=== PATIENT | female | born 1990 | race Hispanic/Latino ===

== ENCOUNTER 2017-08-21 00:44 | Emergency (ER) | payer MEDICAID, OTHER ==
[~2017-08-21 00:44] MED LIST: CIPR-278 PO
[2017-08-21] MEDS ORDERED: PROMETHAZINE HCL 25 MG/ML 1ML AMPULE IM ONE (01:05)
== END 2017-08-21 01:37 | disposition home or self-care (01) ==
LOC: EDH 00:44
DX: J10.1 Influenza due to other identified influenza virus with other respiratory manifestations (principal)
CPT/HCPCS: 96372; 99283; J2550

== ENCOUNTER 2017-11-17 08:28 | Emergency (ER) | payer MEDICAID, OTHER ==
[2017-11-17 09:44] LABS: BASOPHILS % (AUTO) 0.9 % (0.0-5.0); EOSINOPHILS % (AUTO) 2.7 % (0.0-8.0); HEMATOCRIT 43.2 % (36-48); LYMPHOCYTES % (AUTO) 30.6 % (21.0-51.0); MEAN CORPUSCULAR HEMOGLOBIN 31.5 pg (27.0-33.0); MEAN CORPUSCULAR HGB CONC 34.7 g/dL (32.0-36.0); MEAN CORPUSCULAR VOLUME 90.8 fL (79-99); MONOCYTES % (AUTO) 9.5 % (3.0-13.0); NEUTROPHILS % (AUTO) 56.3 % (40.0-77.0); PLATELET COUNT (AUTO) 372 K/uL (130-400); RED BLOOD CELL COUNT(AUTO) 4.76 MIL/uL (4.00-5.50); RED CELL DISTRIBUTION WIDTH 13.1 % (11.0-15.5); WHITE BLOOD COUNT (AUTO) 7.2 K/uL (4.8-10.8)
[2017-11-17 09:56] LABS: BILIRUBIN,URINE Negative (NEGATIVE); COLOR,URINE Yellow (YELLOW); GLUCOSE, URINE (UA) Negative (NEGATIVE); KETONES,URINE Negative (NEGATIVE); LEUKOCYTE ESTERASE ,URINE Negative (NEGATIVE); NITRATE,URINE Negative (NEGATIVE); OCCULT BLOOD,URINE Negative (NEGATIVE); PH,URINE 6.5 (5.0-8.0); PROTEIN,URINE Trace (NEGATIVE)
[2017-11-17 10:02] LABS: APPEARANCE,URINE CLEAR (CLEAR)
[2017-11-17 10:05] LABS: BACTERIA,URINE Rare /HPF (None Seen); SQUAMOUS EPITHELIAL CELL,UR Few /HPF (0-2); WBC,URINE 0-1 /HPF (0-1)
== END 2017-11-17 11:13 | disposition home or self-care (01) ==
LOC: EDH 08:28
DX: O26.891 Other specified pregnancy related conditions, first trimester (principal); R10.2 Pelvic and perineal pain; Z3A.01 Less than 8 weeks gestation of pregnancy
CPT/HCPCS: 36415; 76817; 81001; 81025; 84702; 85025; 87210; 87486; 87797

== ENCOUNTER 2017-11-20 14:41 | Emergency (ER) | payer MEDICAID, OTHER | END 2017-11-20 16:21 | disposition home or self-care (01) | LOC: EDH 14:41 | DX: O20.0 Threatened abortion (principal); Z3A.01 Less than 8 weeks gestation of pregnancy | CPT/HCPCS: 36415; 84702 ==

== ENCOUNTER 2018-09-05 12:24 | Emergency (ER) | payer MEDICAID, OTHER ==
[2018-09-05] MEDS ORDERED: SODIUM CHLORIDE 0.9% 1000ML 1,000 ML IV ONE (14:14)
[2018-09-05 14:24] LABS: BASOPHILS % (AUTO) 0.6 % (0.0-5.0); EOSINOPHILS % (AUTO) 2.4 % (0.0-8.0); HEMATOCRIT 39.8 % (36-48); LYMPHOCYTES % (AUTO) 12.3 % (21.0-51.0); MEAN CORPUSCULAR HEMOGLOBIN 31.4 pg (27.0-33.0); MEAN CORPUSCULAR HGB CONC 34.3 g/dL (32.0-36.0); MEAN CORPUSCULAR VOLUME 91.6 fL (79-99); MONOCYTES % (AUTO) 8.4 % (3.0-13.0); NEUTROPHILS % (AUTO) 76.3 % (40.0-77.0); PLATELET COUNT (AUTO) 319 K/uL (130-400); RED BLOOD CELL COUNT(AUTO) 4.35 MIL/uL (4.00-5.50); RED CELL DISTRIBUTION WIDTH 12.7 % (11.0-15.5); WHITE BLOOD COUNT (AUTO) 10.9 K/uL (4.8-10.8)
[2018-09-05 14:25] LABS: APPEARANCE,URINE CLEAR (CLEAR); BILIRUBIN,URINE Negative (NEGATIVE); COLOR,URINE Yellow (YELLOW); GLUCOSE, URINE (UA) Negative (NEGATIVE); KETONES,URINE Negative (NEGATIVE); LEUKOCYTE ESTERASE ,URINE Trace (NEGATIVE); NITRATE,URINE Negative (NEGATIVE); OCCULT BLOOD,URINE Large (NEGATIVE); PH,URINE 6.5 (5.0-8.0); PROTEIN,URINE Negative (NEGATIVE); UROBILINOGEN,URINE 0.2 mg/dL (0.2-1.0)
[2018-09-05 14:37] LABS: CREATININE 0.7 mg/dL (0.5-1.5); POTASSIUM 3.4 mmol/L (3.5-5.1)
[2018-09-05 14:42] LABS: BACTERIA,URINE Rare /HPF (None Seen)
[2018-09-05 14:49] LABS: CALCIUM OXALATE CRYSTALS,UR Few /LPF (None Seen); MUCUS,URINE Rare LPF (None Seen); SQUAMOUS EPITHELIAL CELL,UR Rare /HPF (0-2)
== END 2018-09-05 16:54 | disposition home or self-care (01) ==
LOC: EDH 12:24
DX: O20.0 Threatened abortion (principal); R19.7 Diarrhea, unspecified; Z98.890 Other specified postprocedural states; Z3A.10 10 weeks gestation of pregnancy
CPT/HCPCS: 36415; 76801; 80048; 81001; 84702; 85025; 86900; 86901; 87804 ×2; 96360; 96361; 99284; J7030

== ENCOUNTER 2019-05-11 22:59 | Emergency (ER) | payer MEDICAID ==
[2019-05-11] MEDS ORDERED: ONDANSETRON ODT 4 MG TAB ONE (23:32)
[2019-05-11] MEDS ORDERED: ACETAMINOPHEN EXTRA STRENGTH 500 MG TABLET ONE (23:32)
[2019-05-11 23:48] LABS: BASOPHILS % (AUTO) 0.5 % (0.0-5.0); EOSINOPHILS % (AUTO) 2.4 % (0.0-8.0); HEMATOCRIT 40.9 % (36-48); LYMPHOCYTES % (AUTO) 15.6 % (21.0-51.0); MEAN CORPUSCULAR HEMOGLOBIN 31.4 pg (27.0-33.0); MEAN CORPUSCULAR HGB CONC 34.2 g/dL (32.0-36.0); MEAN CORPUSCULAR VOLUME 91.6 fL (79-99); MONOCYTES % (AUTO) 5.6 % (3.0-13.0); NEUTROPHILS % (AUTO) 75.9 % (40.0-77.0); PLATELET COUNT (AUTO) 357 K/uL (130-400); RED BLOOD CELL COUNT(AUTO) 4.46 MIL/uL (4.00-5.50); RED CELL DISTRIBUTION WIDTH 13.2 % (11.0-15.5); WHITE BLOOD COUNT (AUTO) 12.2 K/uL (4.8-10.8)
[2019-05-11 23:56] LABS: CREATININE 0.7 mg/dL (0.5-1.5); POTASSIUM 3.7 mmol/L (3.5-5.1)
[2019-05-11 23:57] LABS: APPEARANCE,URINE Clear (CLEAR); BILIRUBIN,URINE Negative (NEGATIVE); COLOR,URINE Yellow (YELLOW); GLUCOSE, URINE (UA) Negative (NEGATIVE); KETONES,URINE Negative (NEGATIVE); LEUKOCYTE ESTERASE ,URINE Negative (NEGATIVE); NITRATE,URINE Negative (NEGATIVE); OCCULT BLOOD,URINE Trace (NEGATIVE); PH,URINE 6.5 (5.0-8.0); PROTEIN,URINE Negative (NEGATIVE)
[2019-05-12 00:01] LABS: ALBUMIN 3.9 g/dL (3.5-5.0); BILIRUBIN,TOTAL 0.3 mg/dL (0.2-1.0); TOTAL PROTEIN, SERUM 7.9 g/dL (6.0-8.3)
[2019-05-12 00:17] LABS: BACTERIA,URINE None Seen /HPF (None Seen); RBC,URINE None Seen /HPF (0-1); WBC,URINE None Seen /HPF (0-1)
[2019-05-12] MEDS ORDERED: TETRACAINE HCL 0.5% 4 ML OPHTH SOLN ONE (00:35)
[2019-05-12] MEDS ORDERED: NA BORATE/BORIC AC/H2O/NACL 120 ML OPHTH IRRIG SOLN ONE (00:35)
[2019-05-12] MEDS ORDERED: FLUORESCEIN SODIUM 1 STRIP STRIP ONE (00:35)
[2019-05-12] MEDS ORDERED: CLINDAMYCIN HCL 150 MG CAP ONE (00:36)
[2019-05-12] MEDS ORDERED: GENTAMICIN SULFATE 0.3% 5ML DROPS ONE (00:56)
== END 2019-05-12 01:19 | disposition home or self-care (01) ==
LOC: EDH 22:59
DX: H10.32 Unspecified acute conjunctivitis, left eye (principal); H05.012 Cellulitis of left orbit; R11.2 Nausea with vomiting, unspecified; R19.7 Diarrhea, unspecified; Z98.890 Other specified postprocedural states
CPT/HCPCS: 36415; 80053; 81001; 81025; 85025

== ENCOUNTER 2019-08-24 11:56 | Emergency (ER) | payer MEDICAID, OTHER ==
[2019-08-24] MEDS ORDERED: TETANUS/DIPHTHERIA TOXOID [ADULT] 0.5 ML VIAL IM ONE (12:09)
== END 2019-08-24 13:01 | disposition home or self-care (01) ==
LOC: EDH 11:56
DX: S81.011A Laceration without foreign body, right knee, initial encounter (principal); Z98.890 Other specified postprocedural states; W01.198A Fall on same level from slipping, tripping and stumbling with subsequent striking against other object, initial encounter; Y93.89 Activity, other specified; Y92.89 Other specified places as the place of occurrence of the external cause; Y99.8 Other external cause status
CPT/HCPCS: 12032; 90471; 90714

== ENCOUNTER 2020-04-12 20:39 | Emergency (ER) | payer MEDICAID ==
[2020-04-12 21:46] LABS: BASOPHILS % (AUTO) 0.5 % (0.0-5.0); EOSINOPHILS % (AUTO) 1.4 % (0.0-8.0); LYMPHOCYTES % (AUTO) 21.3 % (21.0-51.0); MEAN CORPUSCULAR HEMOGLOBIN 30.3 pg (27.0-33.0); MEAN CORPUSCULAR HGB CONC 33.5 g/dL (32.0-36.0); MEAN CORPUSCULAR VOLUME 90.5 fL (79-99); MONOCYTES % (AUTO) 6.8 % (3.0-13.0); NEUTROPHILS % (AUTO) 69.7 % (40.0-77.0); PLATELET COUNT (AUTO) 394 K/uL (130-400); RED BLOOD CELL COUNT(AUTO) 4.42 MIL/uL (4.00-5.50); RED CELL DISTRIBUTION WIDTH 12.1 % (11.0-15.5); WHITE BLOOD COUNT (AUTO) 6.6 K/uL (4.8-10.8)
[2020-04-12 21:47] LABS: APPEARANCE,URINE Clear (CLEAR); BILIRUBIN,URINE Negative (NEGATIVE); COLOR,URINE Yellow (YELLOW); GLUCOSE, URINE (UA) Negative (NEGATIVE); KETONES,URINE 15 mg/dL (NEGATIVE); LEUKOCYTE ESTERASE ,URINE Negative (NEGATIVE); NITRATE,URINE Negative (NEGATIVE); OCCULT BLOOD,URINE Negative (NEGATIVE); PH,URINE 7.5 (5.0-8.0); PROTEIN,URINE Negative (NEGATIVE); UROBILINOGEN,URINE 0.2 mg/dL (0.2-1.0)
[2020-04-12 21:51] LABS: HCG,QUAL RESULT NEGATIVE (NEGATIVE)
[2020-04-12 22:06] LABS: CREATININE 0.7 mg/dL (0.5-1.5); POTASSIUM 3.8 mmol/L (3.5-5.1)
[2020-04-12 22:12] LABS: ALBUMIN 3.9 g/dL (3.5-5.0); BILIRUBIN,TOTAL 0.5 mg/dL (0.2-1.0); TOTAL PROTEIN, SERUM 7.7 g/dL (6.0-8.3)
== END 2020-04-12 22:51 | disposition home or self-care (01) ==
LOC: EDH 20:39
DX: R03.0 Elevated blood-pressure reading, without diagnosis of hypertension (principal); F10.10 Alcohol abuse, uncomplicated; Z98.890 Other specified postprocedural states; Z90.49 Acquired absence of other specified parts of digestive tract; Y90.9 Presence of alcohol in blood, level not specified
CPT/HCPCS: 36415; 80053; 81003; 81025; 85025

== ENCOUNTER 2020-07-17 22:18 | Emergency (ER) | payer MEDICAID ==
[2020-07-17 23:07] LABS: BASOPHILS % (AUTO) 0.7 % (0.0-5.0); EOSINOPHILS % (AUTO) 3.1 % (0.0-8.0); HEMATOCRIT 41.4 % (36-48); LYMPHOCYTES % (AUTO) 23.4 % (21.0-51.0); MEAN CORPUSCULAR HEMOGLOBIN 29.4 pg (27.0-33.0); MEAN CORPUSCULAR HGB CONC 33.3 g/dL (32.0-36.0); MEAN CORPUSCULAR VOLUME 88.3 fL (79-99); MONOCYTES % (AUTO) 9.8 % (3.0-13.0); NEUTROPHILS % (AUTO) 62.9 % (40.0-77.0); PLATELET COUNT (AUTO) 409 K/uL (130-400); RED BLOOD CELL COUNT(AUTO) 4.69 MIL/uL (4.00-5.50); RED CELL DISTRIBUTION WIDTH 12.4 % (11.0-15.5); WHITE BLOOD COUNT (AUTO) 9.9 K/uL (4.8-10.8)
[2020-07-17] MEDS ORDERED: 0.9%NACL 1000ML 1,000 ML IV ONE (23:11)
[2020-07-17] MEDS ORDERED: KETOROLAC 30MG VIAL (30MG/ML) ONE (23:11)
[2020-07-17 23:15] LABS: CREATININE 0.8 mg/dL (0.5-1.5); POTASSIUM 3.6 mmol/L (3.5-5.1)
[2020-07-17 23:19] LABS: ALBUMIN 3.7 g/dL (3.5-5.0); BILIRUBIN,TOTAL 0.2 mg/dL (0.2-1.0); TOTAL PROTEIN, SERUM 7.5 g/dL (6.0-8.3)
[2020-07-17 23:28] LABS: APPEARANCE,URINE Clear (CLEAR); BILIRUBIN,URINE Negative (NEGATIVE); COLOR,URINE Yellow (YELLOW); GLUCOSE, URINE (UA) Negative (NEGATIVE); KETONES,URINE Trace mg/dL (NEGATIVE); LEUKOCYTE ESTERASE ,URINE Trace (NEGATIVE); NITRATE,URINE Negative (NEGATIVE); OCCULT BLOOD,URINE Negative (NEGATIVE); PH,URINE 5.5 (5.0-8.0); PROTEIN,URINE Negative (NEGATIVE); UROBILINOGEN,URINE 0.2 mg/dL (0.2-1.0)
[2020-07-17 23:37] LABS: HCG,QUAL RESULT NEGATIVE (NEGATIVE)
== END 2020-07-18 02:36 | disposition home or self-care (01) ==
LOC: EDH 22:18
DX: N83.291 Other ovarian cyst, right side (principal); R10.84 Generalized abdominal pain; Z98.890 Other specified postprocedural states
CPT/HCPCS: 36415; 74177; 76705; 80053; 81003; 81025; 83690; 85025; 96361; 96374; 99285; J1885; J7030

== ENCOUNTER 2021-01-17 04:00 | Emergency (ER) | payer MEDICAID ==
[~2021-01-17] VITALS: Ht 160 cm; Wt 59.0 kg
[2021-01-17 04:02] VITALS: BP 135/90
[2021-01-17] MEDS ORDERED: HYDROCODONE/ACETAMINOPHEN 5/325 MG TAB PO ONE (05:00)
[2021-01-17] MEDS ORDERED: HYDROCODONE/ACETAMINOPHEN 5/325 MG TAB ONE (05:05)
[2021-01-17] MEDS ORDERED: ONDANSETRON ODT 4MG TAB ONE (05:12)
[2021-01-17] MEDS ORDERED: KETOROLAC 60 MG VIAL (30MG/ML) ONE (05:14)
[2021-01-17] MEDS ORDERED: ONDANSETRON 4MG INJ ONE (05:28)
[2021-01-17 06:49] VITALS: BP 132/94
[2021-01-17] MEDS ORDERED: IBUP-2070 PO (06:53)
[2021-01-17] MEDS ORDERED: AMOX500C2 PO (06:53)
[2021-01-17] MEDS ORDERED: ONDA4TAB10 PO (06:53)
[2021-01-17 07:50] VITALS: BP 134/94
== END 2021-01-17 07:51 | disposition home or self-care (01) ==
LOC: EDH 04:00
DX: K02.9 Dental caries, unspecified (principal); R11.2 Nausea with vomiting, unspecified; K08.89 Other specified disorders of teeth and supporting structures; I10 Essential (primary) hypertension; Z79.1 Long term (current) use of non-steroidal anti-inflammatories (NSAID); Z79.899 Other long term (current) drug therapy
CPT/HCPCS: 96372; 96374; 99284; J1885; J2405; 96375

== ENCOUNTER 2022-01-15 02:16 | Emergency (ER) | payer MEDICAID ==
[~2022-01-15] VITALS: Ht 162.6 cm; Wt 62.6 kg
[~2022-01-15 02:16] MED LIST changes: +AMOX500C2 PO; +IBUP-2070 PO; +ONDA4TAB10 PO
[2022-01-15 02:39] LABS: APPEARANCE,URINE CLEAR (CLEAR); BILIRUBIN,URINE NEGATIVE (NEGATIVE); COLOR,URINE YELLOW (YELLOW); GLUCOSE, URINE (UA) NEGATIVE (NEGATIVE); KETONES,URINE NEGATIVE (NEGATIVE); LEUKOCYTE ESTERASE ,URINE NEGATIVE (NEGATIVE); NITRATE,URINE NEGATIVE (NEGATIVE); OCCULT BLOOD,URINE SMALL (NEGATIVE); PROTEIN,URINE NEGATIVE (NEGATIVE); UROBILINOGEN,URINE 0.2 mg/dL (0.2-1.0)
[2022-01-15 02:44] LABS: HCG,QUAL RESULT NEGATIVE (NEGATIVE)
[2022-01-15 03:14] LABS: BACTERIA,URINE Rare /HPF (None Seen); RBC,URINE 0-1 /HPF (0-1); SQUAMOUS EPITHELIAL CELL,UR Moderate /HPF (0-2); WBC,URINE 0-1 /HPF (0-1)
[2022-01-15] MEDS ORDERED: ACETAMINOPHEN 500 MG TABLET ONE (03:56)
[2022-01-15 04:21] LABS: BASOPHILS % (AUTO) 0.5 % (0.0-5.0); EOSINOPHILS % (AUTO) 3.9 % (0.0-8.0); HEMATOCRIT 37.9 % (36-48); LYMPHOCYTES % (AUTO) 37.6 % (21.0-51.0); MEAN CORPUSCULAR HEMOGLOBIN 29.2 pg (27.0-33.0); MEAN CORPUSCULAR HGB CONC 33.8 g/dL (32.0-36.0); MEAN CORPUSCULAR VOLUME 86.5 fL (79-99); MONOCYTES % (AUTO) 6.5 % (3.0-13.0); NEUTROPHILS % (AUTO) 51.4 % (40.0-77.0); PLATELET COUNT (AUTO) 352 K/uL (130-400); RED BLOOD CELL COUNT(AUTO) 4.38 MIL/uL (4.00-5.50); WHITE BLOOD COUNT (AUTO) 7.4 K/uL (4.8-10.8)
[2022-01-15 04:32] LABS: CREATININE 0.8 mg/dL (0.5-1.5); POTASSIUM 3.5 mmol/L (3.5-5.1)
[2022-01-15 04:36] LABS: ALBUMIN 3.7 g/dL (3.5-5.0); BILIRUBIN,TOTAL 0.8 mg/dL (0.2-1.0)
[2022-01-15] MEDS ORDERED: KETOROLAC 15MG/ML VIAL (15MG/ML) IV ONE (05:00)
[2022-01-15] MEDS ORDERED: IBUP-2070 PO (05:43)
[2022-01-15 06:06] VITALS: BP 138/82
== END 2022-01-15 06:09 | disposition home or self-care (01) ==
LOC: EDH 02:16
DX: R10.2 Pelvic and perineal pain (principal); R10.31 Right lower quadrant pain; Z79.899 Other long term (current) drug therapy; Z98.890 Other specified postprocedural states
CPT/HCPCS: 36415; 76856; 80053; 81001; 81025; 85025; 96374; 99284; J1885

== ENCOUNTER 2023-07-25 01:07 | Emergency (ER) | payer OTHER, MEDICAID ==
[~2023-07-25] VITALS: Ht 162.6 cm; Wt 59.0 kg
[2023-07-25] MEDS ORDERED: ONDANSETRON 4MG INJ IVP ONE (01:30)
[2023-07-25] MEDS ORDERED: 0.9%NACL 1000ML 1,000 ML IV ONE (01:30)
[2023-07-25 01:53] LABS: CARBON DIOXIDE 27 mmol/L (21-32); CHLORIDE 106 mmol/L (101-111); CREATININE 0.7 mg/dL (0.5-1.5); GLOMERULAR FILTR. RATE CALC 116 mL/min (>90); GLUCOSE,RANDOM 122 mg/dL (70-105); POTASSIUM 3.6 mmol/L (3.5-5.1); SODIUM SERUM 140 mmol/L (136-145); UREA NITROGEN, BLOOD 14 mg/dL (7-18)
[2023-07-25 01:54] LABS: BASOPHILS # (AUTO) 0.04 K/uL (0.00-0.20); BASOPHILS % (AUTO) 0.3 % (0.0-5.0); EOSINOPHILS % (AUTO) 1.6 % (0.0-8.0); IMMATURE GRANULOCYTE ABSOLUTE 0.06 K/uL (0-1); LYMPHOCYTES % (AUTO) 31.1 % (21.0-51.0); MEAN CORPUSCULAR HEMOGLOBIN 30.4 pg (27.0-33.0); MEAN CORPUSCULAR HGB CONC 33.9 g/dL (32.0-36.0); MEAN CORPUSCULAR VOLUME 89.4 fL (79-99); MONOCYTES # (AUTO) 0.9 K/uL (0.1-1.0); MONOCYTES % (AUTO) 7.1 % (3.0-13.0); NEUTROPHILS # (AUTO) 7.7 K/uL (1.8-7.7); NEUTROPHILS % (AUTO) 59.4 % (40.0-77.0); PLATELET COUNT (AUTO) 294 K/uL (130-400); RED BLOOD CELL COUNT(AUTO) 3.69 MIL/uL (4.00-5.50); RED CELL DISTRIBUTION WIDTH 12.3 % (11.0-15.5); WHITE BLOOD COUNT (AUTO) 12.9 K/uL (4.8-10.8)
[2023-07-25] MEDS ORDERED: 0.9%NACL 1000ML 1,095 ML IV ONE (02:00)
[2023-07-25 02:10] LABS: ALANINE AMINOTRANSFERASE 14 U/L (12-78); ALBUMIN 2.9 g/dL (3.5-5.0); ALCOHOL, BLOOD < 3 mg/dL (0-10); ASPARTATE AMINOTRANSFERASE 13 U/L (10-37); BILIRUBIN,TOTAL 0.3 mg/dL (0.2-1.0); THYROID STIMULATING HORMONE 4.31 uIU/mL (0.36-3.74); TOTAL PROTEIN, SERUM 5.8 g/dL (6.0-8.3)
[2023-07-25] MEDS ORDERED: MAGNESIUM OXIDE 400 MG TABLET PO ONE (03:30)
[2023-07-25] MEDS ORDERED: CALCIUM CARB 500MG CHEW TAB PO SCH (03:30)
[2023-07-25 03:32] LABS: APPEARANCE,URINE CLOUDY (CLEAR); BILIRUBIN,URINE NEGATIVE (NEGATIVE); COLOR,URINE LIGHT-YELLOW (YELLOW); GLUCOSE, URINE (UA) NEGATIVE (NEGATIVE); KETONES,URINE 40 mg/dL (NEGATIVE); LEUKOCYTE ESTERASE ,URINE 500 Leu/uL (NEGATIVE); NITRATE,URINE NEGATIVE (NEGATIVE); OCCULT BLOOD,URINE SMALL (NEGATIVE); PROTEIN,URINE 20 mg/dL (NEGATIVE)
[2023-07-25 03:34] LABS: ADD UA MICROSCOPIC YES
[2023-07-25 03:40] LABS: AMPHET/METH SCREEN,URINE POSITIVE (NEGATIVE); BARBITURATE SCREEN, URINE NEGATIVE (NEGATIVE); BENZODIAZEPINES SCREEN,URINE NEGATIVE (NEGATIVE); CANNABINOID SCREEN,URINE NEGATIVE (NEGATIVE); COCAINE SCREEN,URINE NEGATIVE (NEGATIVE); OPIATE SCREEN,URINE NEGATIVE (NEGATIVE); PHENCYCLIDINE SCREEN,URINE NEGATIVE (NEGATIVE)
[2023-07-25 03:43] LABS: BACTERIA,URINE Rare /HPF (None Seen); SQUAMOUS EPITHELIAL CELL,UR Moderate /HPF (0-2)
[2023-07-25 03:52] LABS: HCG,QUALITATIVE URINE NEGATIVE (NEGATIVE)
[2023-07-25] MEDS ORDERED: CEPH500T PO (04:17)
[2023-07-25] MEDS ORDERED: LEVO25TA9 PO (04:17)
[2023-07-25] MEDS ORDERED: CEFTRIAXONE 2GM VIAL IVPB ONE (04:30)
[2023-07-25 05:00] VITALS: BP 110/62; PULSE 70; RESP 16; O2SAT 100
== END 2023-07-25 05:25 | disposition home or self-care (01) ==
LOC: EDH 01:07
DX: N39.0 Urinary tract infection, site not specified (principal); E03.9 Hypothyroidism, unspecified; E83.51 Hypocalcemia; E83.42 Hypomagnesemia; F15.10 Other stimulant abuse, uncomplicated; Z79.899 Other long term (current) drug therapy; Z90.89 Acquired absence of other organs; Z98.890 Other specified postprocedural states
CPT/HCPCS: 99285; 96365; 71045; 96361; 96375; 84443; 83735; 84484; 80053; 80305; 83690; 85025; 86850; 86900; 86901; 87088; 81025; 36415; 93005; 81001; J0696; J2405

== ENCOUNTER 2025-02-22 21:43 | Emergency (ER) | payer BC, MEDICAID, OTHER ==
[~2025-02-22] VITALS: Ht 162.6 cm; Wt 60.3 kg
[~2025-02-22 21:43] MED LIST changes: +CEPH500T PO; +IBUP-1492 PO; -IBUP-2070 PO; +LEVO25TA9 PO; +ONDA-243 PO; -ONDA4TAB10 PO
--- NOTE | 2025-02-22 22:20 | ERN ---
ED Note History of Present Illness Stated Complaint: SYNCOPE, COVID POSITIVE Chief Complaint: Syncope Time Seen by MD: 21:45 Time Seen by Midlevel: 21:45 Dictation: The patient is a 34-year-old female with a history of , tonsillectomy who presents to the emergency department with complaints of syncopal episode at around 9:00 p.m. today. Patient reports that she tested positive for COVID yesterday. Reports feeling fatigued and reports some shortness of breath but denies any cough, nausea or vomiting, diarrhea. Patient reports she was at a football game today and she was walking a long distance when she felt like she was going to pass out and sat herself down. Patient then reported she got up and started walking again towards her family members who then had a syncopal episode. Denies any falls or traumas. Reports family episode caught her. Reports loss of consciousness for a few sec. patient's blood pressure with EMS was 60s systolic. Improved after IV fluids. Allergies: Coded Allergies: No Known Drug Allergies (Verified Allergy, Unknown, 01/19/14) Home Meds Active Scripts Levothyroxine Sodium (Synthroid 25 Mcg Tab) 25 Mcg Tablet, 25 MCG PO DAILY, #30 TAB 2 Refills Prov:COREEN ARGUELLES Sr., MD 07/25/23 Cephalexin (Cephalexin) 500 Mg Tablet, 500 MG PO QID for 10 Days, #40 TAB 0 Refills Prov:COREEN ARGUELLES Sr., MD 07/25/23 Ibuprofen (Ibuprofen) 600 Mg Tablet, 600 MG PO Q6H PRN for PAIN, #30 TAB Prov:WES LEA MD 01/15/22 Ondansetron (Ondansetron Odt) 4 Mg Tab.rapdis, 4 MG PO ONCE PRN for nausea for 3 Days, #10 TAB Prov:DOROTEO YORK MD 01/17/21 Ibuprofen (Ibuprofen) 600 Mg Tablet, 600 MG PO Q6H PRN for PAIN for 10 Days, #40 TAB Prov:DOROTEO YORK MD 01/17/21 Amoxicillin (Amoxicillin) 500 Mg Capsule, 500 MG PO TID for dental infection for 7 Days, #21 CAP Prov:DOROTEO YORK MD 01/17/21 Ciprofloxacin HCl (Cipro) 500 Mg Tablet, 500 MG PO BID, #10 TAB Prov:YULI PATEL MD 05/18/15 Past Medical History Past Medical History: No Pertinent History, Anemia Surgical History: Tonsillectomy, Social History: Negative, Lives with family History: Not Applicable RN Note Reviewed/Agreed w/PFSH: Yes Review of System Dictation Constitutional: Negative for fever,chills, and weight loss Eyes: Negative for injury, pain,redness, and discharge ENT: Negative for injury,pain or swelling Cardiovascular: Negative for chest pain, palpitations, and edema Respiratory: Negative for shortness of breath, cough, and wheezing, Abdomen/GI: Negative for abdominal pain, nausea, vomiting, diarrhea, and constipation Back: Negative for injury and pain : Negative for injury, bleeding and discharge MS/Extremity: Negative for injury and deformity Skin: Negative for rash, and discoloration Neuro: Negative for headache, numbness, tingling, and seizure positive for weakness, syncope Psych: Negative for suicide ideation, homicidal ideation, and hallucinations Initial Vital Sign VS Vital Signs Date Time Temp Pulse Resp B/P (MAP) Pulse Ox O2 Delivery O2 Flow Rate FiO2 02/22/25 21:44 87 18 114/80 100 0 02/22/25 22:09 98.1 Room Air* 21 Physical Exam Dictation Vital Signs reviewed General Appearance: Alert, oriented x 3, no acute distress, well developed, nourished. Head and Face: non-traumatic. Eyes: PERRL, pink conjunctivas, eyelid no trauma, anterior chamber with arcus senilis. Ears: Pinnas intact and no signs of trauma or erythema ear canals clear and no discharge TM no erythema Nose: No discharge, no bleeding. Oropharynx: Mouth normal, tongue pink. pharynx clear,no erythema, tonsils no exudates, no abscesses noted, mucous membrane moist Neck: Supple, non-tender, no thyromegaly, no masses, no JVD, no bruits Breast:Deferred Chest:No tenderness, no crepitus, no paradoxical movement, no retractions Lungs:Clear, well-ventilated, symmetric, no rales, no wheezing, no rhonchi, no stridor, good breath sounds bilaterally Heart: Regular rate, regular rhythm, no murmur, no gallops Vascular: no peripheral edema, Abdomen: Soft, positive bowel sounds, nondistended, no guarding, nontender, no rebound, no masses no hepatomegaly, no splenomegaly, no Espinoza's sign, no hernias. Rectal: Deferred Genital: Deferred Neurological: Normal speech, motor function intact, sensory function intact , upper extremities equal in strength, lower extremities equal in strength, no facial droop, no slurred speech Musculoskeletal: Neck nontender, full range of motion, back nontender, full range of motion, Extremities: nontender, full range of motion Skin: Color pink, dry, no turgor, no rash, no lacerations, no abrasions, no contusions. Lymphatic: Deferred Results (Laboratory/Radiology) Laboratory/Radiology Laboratory Tests Test 02/22/25 22:09 White Blood Count 7.6 K/uL (4.8-10.8) Red Blood Count 3.86 MIL/uL (4.00-5.50) L Hemoglobin 11.6 g/dL (12.0-16.0) L Hematocrit 35.3 % (36-48) L Mean Corpuscular Volume 91.5 fL (79-99) Mean Corpuscular Hemoglobin 30.1 pg (27.0-33.0) Mean Corpuscular Hemoglobin Concent 32.9 g/dL (32.0-36.0) Red Cell Distribution Width 12.6 % (11.0-15.5) Platelet Count 246 K/uL (130-400) Mean Platelet Volume 9.5 fL (7.5-10.5) Immature Granulocyte % (Auto) 0.4 % (0-1) Neutrophils (%) (Auto) 75.5 % (40.0-77.0) Lymphocytes (%) (Auto) 12.3 % (21.0-51.0) L Monocytes (%) (Auto) 10.2 % (3.0-13.0) Eosinophils (%) (Auto) 1.1 % (0.0-8.0) Basophils (%) (Auto) 0.5 % (0.0-5.0) Neutrophils # (Auto) 5.7 K/uL (1.8-7.7) Lymphocytes # (Auto) 0.9 K/uL (1.0-4.8) L Monocytes # (Auto) 0.8 K/uL (0.1-1.0) Eosinophils # (Auto) 0.08 K/uL (0.00-0.70) Basophils # (Auto) 0.04 K/uL (0.00-0.20) Absolute Immature Granulocyte (auto 0.03 K/uL (0-1) Nucleated Red Blood Cells 0.0 % (0.0-0.19) Sodium Level 139 mmol/L (136-145) Potassium Level 3.8 mmol/L (3.5-5.1) Chloride Level 104 mmol/L (101-111) Carbon Dioxide Level 29 mmol/L (21-32) Blood Urea Nitrogen 6 mg/dL (7-18) L Creatinine 0.7 mg/dL (0.5-1.0) Glomerular Filtration Rate Calc 115 mL/min (>90) Random Glucose 102 mg/dL (70-105) Total Calcium 7.9 mg/dL (8.5-10.1) L Magnesium Level 1.70 mg/dL (1.80-2.40) L Total Creatine Kinase 166 U/L (21-232) # Troponin I High Sensitivity < 4 ng/L (4-50) L Serum Test, Qualitative NEGATIVE (NEGATIVE) REASON: syncope ORDERING PHYSICIAN: MORGAN DAWSON HOUSEKEEPING/LAUNDRY PROCEDURE: CXR1VW - CHEST 1VW EXAM: CR Chest, 1 View. CLINICAL HISTORY: syncope COMPARISON: None provided. FINDINGS: LUNGS: There is no mass, infiltrate, or acute pulmonary abnormality. PLEURAL SPACES: No evidence of pleural effusion or pneumothorax. MEDIASTINUM: The cardiomediastinal silhouette is within normal limits. BONES: No aggressive appearing osseous lesion seen. IMPRESSION: No acute cardiopulmonary pathology is evident. /[place] Labs Reviewed?: Yes EKG: (+) rhythm (Sinus) EKG Comment: Date:02/22/2025 Time:2157 Ventricular rate:101 MI interval:154 QRS duration:77 QT/QTc:346/448 EKG interpretation: Sinus tachycardia Reviewed by ED Attending no STEMI ED Course ED Course Orders Procedure Category Date Status Time Cbc With Differential LAB 02/22/25 Complete 21:59 Chest 1vw RAD 02/22/25 Resulted 21:59 12 Lead Ekg Tracing- EKG 02/22/25 Logged Technical 21:59 0.9%Nacl 1000ml (Ns PHA 02/22/25 Complete 1000ml) 22:00 Magnesium LAB 02/22/25 Complete 21:59 Creatine Kinase, Total LAB 02/22/25 Complete 21:59 Troponin I High LAB 02/22/25 Complete Sensitivity 21:59 Basic Metabolic Panel LAB 02/22/25 Complete 21:59 Orthostatic Vital CPOE 02/22/25 Transmitted Signs 21:59 Testing, LAB 02/22/25 Complete Serum Hcg 21:59 Drug Screen Urine LAB 02/22/25 Logged 22:16 Magnesium Oxide PHA 02/22/25 Complete (Mag-Ox) 23:30 Current Medications Medications (Trade) Dose Ordered Sig/Yordan Route PRN Reason Start Time Stop Time Status Last Admin Dose Admin Magnesium Oxide (Mag-Ox) 400 mg ONCE ONCE PO 02/22/25 23:30 02/22/25 23:31 DC Sodium Chloride 1,000 ml @ 0 mls/hr ONCE ONCE IV 02/22/25 22:00 02/22/25 22:02 DC 02/22/25 22:28 Vital Signs Date Time Temp Pulse Resp B/P (MAP) Pulse Ox O2 Delivery O2 Flow Rate FiO2 02/22/25 22:09 98.1 92 18 102/69 100 Room Air* 0 21 02/22/25 21:44 87 18 114/80 100 0 Medical Decision Making MDM The patient is a 34-year-old female with a history of , tonsillectomy who presents to the emergency department with complaints of syncopal episode at around 9:00 p.m. today. Patient reports that she tested positive for COVID yesterday. Reports feeling fatigued and reports some shortness of breath but denies any cough, nausea or vomiting, diarrhea. Patient reports she was at a football game today and she was walking a long distance when she felt like she was going to pass out and sat herself down. Patient then reported she got up and started walking again towards her family members who then had a syncopal episode. Denies any falls or traumas. Reports family episode caught her. Reports loss of consciousness for a few sec. patient's blood pressure with EMS was 60s systolic. Improved after IV fluids. CBC showed no leukocytosis, mild normocytic anemia, chemistry showed mild hypomagnesemia, normal renal function, negative troponin. X-ray showed no acute pathology. Patient had a syncopal episode and an episode of hypotension. This probably related to vasovagal response. On physical exam patient is in no acute distress, nontoxic appearance, neurologically intact. Patient received IV fluids in ER. Blood pressure remained stable throughout ER stay. Negative orthostatic hypotension. Patient reports feeling well and would like to go home at this time. Labs and imaging discussed with the patient who agrees to follow up with PCP. Differential diagnosis: Dehydration, vasovagal response, electrolyte imbalance, orthostatic hypotension, ACS, pneumonia Need for hospitalization: Patient does not meet criteria for hospitalization. There are no social concerns with this patient. DX & DISP Disposition: Discharge Departure Impression: Primary Impression: Syncope Additional Impression: Hypomagnesemia Condition: Stable Additional Instructions: Your labs were unremarkable. Please continue oral hydration at home. Follow up with your primary doctor in 1-2 days. If anything worsens please return to ER. FOLLOW-UP WITH PRIMARY CARE PROVIDER IN 1 TO 2 DAYS. TAKE MEDICATIONS DIRECTED HERE IN THE EMERGENCY ROOM. OKAY TO CONTINUE HOME MEDICATIONS UNLESS OTHERWISE DISCUSSED DURING YOUR VISIT IN THE EMERGENCY ROOM TODAY. RETURN TO YOUR NEAREST EMERGENCY ROOM IF SYMPTOMS WORSEN OR IF THERE IS NO IMPROVEMENT. CALL 911 IF YOU NEED IMMEDIATE ASSISTANCE. TAKE TYLENOL [id number] NEEDED AND IF NO CONTRAINDICATIONS ARE PRESENT. INCREASE ORAL HYDRATION. A WOUND CULTURE OR URINE CULTURE WAS ORDERED HERE IN THE EMERGENCY ROOM DEPARTMENT PLEASE FOLLOW-UP WITH PRIMARY CARE PROVIDER AND ADVISE THEM TO GET REPEAT PORTS FROM OUR FACILITY. IF YOU HAD ANY WARD WRAP/SPLINTS THAT WERE APPLIED HERE, PLEASE DO NOT REMOVE THEM UNTIL YOU SEE YOUR PRIMARY CARE OR SPECIALTY. Referrals: SELF,REFERRAL (PCP) Time of Disposition: 00:32 I have reviewed the case, and I agree with, Diagnosis and Plan MORGAN DAWSON [facility] Feb 22, 2025 22:20
[2025-02-22] MEDS: 0.9%NACL 1000ML 1,000 ML IV ONE (22:28)
[2025-02-22 22:45] LABS: CREATININE 0.7 mg/dL (0.5-1.0); GLOMERULAR FILTR. RATE CALC 115.0 mL/min (>90); GLUCOSE,RANDOM 102.0 mg/dL (70-105); SODIUM SERUM 139.0 mmol/L (136-145); UREA NITROGEN, BLOOD 6.0 mg/dL (7-18)
[2025-02-22 22:50] LABS: CREATINE KINASE, TOTAL 166.0 U/L (21-232)
--- NOTE | 2025-02-22 22:51 | HMCIMG ---
EXAM: CR Chest, 1 View. CLINICAL HISTORY: syncope COMPARISON: None provided. FINDINGS: LUNGS: There is no mass, infiltrate, or acute pulmonary abnormality. PLEURAL SPACES: No evidence of pleural effusion or pneumothorax. MEDIASTINUM: The cardiomediastinal silhouette is within normal limits. BONES: No aggressive appearing osseous lesion seen. IMPRESSION: No acute cardiopulmonary pathology is evident. /[place]
[2025-02-22 22:59] LABS: IMMATURE GRANULOCYTE ABSOLUTE 0.03 K/uL (0-1); NUCLEATED RED BLOOD CELLS 0.0 % (0.0-0.19); PLATELET COUNT (AUTO) 246 K/uL (130-400); RED BLOOD CELL COUNT(AUTO) 3.86 MIL/uL (4.00-5.50); RED CELL DISTRIBUTION WIDTH 12.6 % (11.0-15.5); WHITE BLOOD COUNT (AUTO) 7.6 K/uL (4.8-10.8)
[2025-02-23] MEDS: MAGNESIUM OXIDE 400 MG TABLET PO ONE (00:36)
--- NOTE | 2025-02-23 00:36 | NUR ---
MALE FAMILY MEMBER WALKED OUT OF ROOM, DEMANDING TO SEE THE NURSE REGARDING DISCHARGE INSTRUCTIONS AND TO TAKE IV OUT. FAMILY MEMBER STATED THEY WERE TOLD THEY WERE BEING DISCHARGED AND WANTED TO LEAVE. FIELD SERVICES ANALYST EXPLAINED HIS PRIMARY NURSE IS UNAVAILABLE. BEFORE THE FIELD SERVICES ANALYST COULD FINISH HIS SENTENCE, THE FAMILY MEMBER CUT HIS OFF. FIELD SERVICES ANALYST EXPLAINED HE WOULD SEND IN THE CHARGE NURSE. PROVIDER ENTERED ROOM WITH CHARGE NURSE, PROVIDER EXPLAINED THAT SHE NEEDED TO REPEAT BP BEFORE DISCHARGING HER. BP WAS REPEATED AND DISCHARGE PAPER WAS PREPARED. IV WAS REMOVED AND DISCHARGE INSTRUCTIONS GIVEN.
[2025-02-23 00:42] VITALS: BP 127/86; PULSE 83; RESP 16; TEMP 98.1; O2SAT 100
--- NOTE | 2025-02-23 01:00 | NUR ---
CHARGE NURSE DISCHARGED PT BEFORE RPIMARY NURSE COULD DO SO, R/T PRIMARY NURSE BEING IN A CODE. ED TRAINING AND DEVELOPMENT COORDINATOR MADE AWARE ORTHOSTATIC VS WERE NOT DONE PRIOR TO DISCHARGE. PER TRAINING AND DEVELOPMENT COORDINATOR SHE TOOK BP PRIOR TO DISCHARGE AND CLEARED PT FOR DISCHARGE.
--- NOTE | 2025-02-23 06:48 | EKG ---
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 : 1990 Requested By: MORGAN DAWSON Order Number: [id number] Reading MD: Prakash Manzanares Measurements Intervals [place] Rate: 101 P: 80 VT: 154 QRS: -53 QRSD: 77 T: 64 QT: 346 QTc: 448 Interpretive Statements Sinus tachycardia Left anterior fascicular block Low voltage, extremity and precordial leads Probable anteroseptal infarct, old Compared to ECG 07/25/2023 01:32:13 Left anterior fascicular block now present Myocardial infarct finding now present Sinus rhythm no longer present Electronically Signed On 02-23-2025 16:05:33 CDT by Prakash Manzanares Please click the below link to view image of tracing.
== END 2025-02-23 00:45 | disposition home or self-care (01) ==
LOC: EDH 21:43
DX: R55 Syncope and collapse (principal); E83.42 Hypomagnesemia; Z90.89 Acquired absence of other organs; Z79.899 Other long term (current) drug therapy
CPT/HCPCS: 36415; 71045; 80048; 82550; 83735; 84484; 84703; 85025; 93005; 99284